=== PATIENT | male | born 1955 | race Caucasian/White ===

== ENCOUNTER 2021-12-17 14:37 | Inpatient (IN) | payer OTHER, MEDICARE ==
[~2021-12-17] VITALS: Ht 170.2 cm; Wt 83.5 kg
[2021-12-17] MEDS ORDERED: FLUT1DIS5 INH (15:04)
[2021-12-17] MEDS ORDERED: Norco 5-325 Ta1 EACH PO (15:05)
[2021-12-17] MEDS ORDERED: Primidone50 MG PO (15:05)
[2021-12-17] MEDS ORDERED: OMEP20ER PO (15:05)
[2021-12-17] MEDS ORDERED: LISI20 PO (15:05)
[2021-12-17] MEDS ORDERED: TADA10TA (15:05)
[2021-12-17 15:25] LABS: BASOPHILS ABSOLUTE AUTO 0.05 K/mm3 (0.00-0.23); BASOPHILS PERCENT AUTO 0 % (0-2); EOSINOPHILS ABSOLUTE AUTO 0.09 K/mm3 (0.00-0.68); EOSINOPHILS PERCENT AUTO 0 % (0-6); Hematocrit 37.5 % (37.0-53.0); Hemoglobin 12.6 g/dL (13.5-17.5); IMMATURE GRAN ABSOLUTE AUTO 0.79 K/mm3 (0.00-0.10); IMMATURE GRAN PERCENT AUTO 4 % (0-1); LYMPHOCYTES ABSOLUTE AUTO 0.98 K/mm3 (0.84-5.20); LYMPHOCYTES PERCENT AUTO 5 % (21-46); MONOCYTES ABSOLUTE AUTO 1.89 K/mm3 (0.16-1.47); MONOCYTES PERCENT AUTO 9 % (4-13); Mean Corpuscular HGB 32.3 pg (26.0-34.0); Mean Corpuscular HGB Conc 33.6 g/dL (31.5-36.5); Mean Corpuscular Volume 96 fL (80-100); Mean Platelet Volume 9.9 fL (9.1-12.4); NEUTROPHILS ABSOLUTE AUTO 18.19 K/mm3 (1.96-9.15); NEUTROPHILS PERCENT AUTO 83 % (41-73); Platelet Count 285 K/mm3 (150-400); RDW Coefficient Variation 12.9 % (11.7-14.2); RDW Standard Deviation 45.5 fL (35.1-46.3); White Blood Cell Count 21.99 K/mm3 (4.00-11.30)
[2021-12-17 15:38] LABS: Alanine Aminotransfer (ALT/SGP 22 U/L (12-78); Albumin, Blood 3.6 g/dL (3.4-5.0); Alk Phos 59 U/L (50-136); Anion Gap 6 mmol/L (6-16); Aspartate Aminotrans (AST/SGOT 6 U/L (12-37); Bilirubin, Total 1.3 mg/dL (0.1-1.0); Blood Urea Nitrogen 10 mg/dL (8-24); Bun/Creatinine Ratio 10.4 (12.0-20.0); CO2, Blood 24 mmol/L (21-32); Calcium, Blood 8.9 mg/dL (8.5-10.1); Chloride, Blood 106 mmol/L (98-108); Creatinine, Blood 0.96 mg/dL (0.60-1.20); Globulin, Blood 3.6 g/dL (2.2-4.0); Glomerular Filtration Rate >60 (60-); Glucose, Blood 125 mg/dL (70-99); Potassium, Blood 3.7 mmol/L (3.5-5.5); Sodium, Blood 136 mmol/L (136-145); Total Protein, Blood 7.2 g/dL (6.4-8.2)
[2021-12-17 15:54] LABS: Influenza A, PCR NEGATIVE (NEGATIVE); Influenza B, PCR NEGATIVE (NEGATIVE); Resp Syncytial Virus, PCR NEGATIVE (NEGATIVE); SARS-Cov-2 (COVID-19) PCR, MMC NEGATIVE (NEGATIVE)
--- NOTE | 2021-12-17 19:12 | NUR ---
ADMIT NOTE RECEIVED REPORT FROM RICK DELAROSA IN ED. PT TO ROOM, SBA TRANSFER TO BED. PT ORIENTED TO ROOM AND CALL LIGHT. EDUCATED ON FALL RISK AND TO CALL BEFORE GETTING OUT OF BED. PT REPROTS HAVING CP YESTERDAY WHILE WATCHING FOOTBALL, WHICH RADIATED TO BACK AND SHOULDER; STATES HE WORK UP THIS AM FEELING WORSE SO [facility]. PT A&Ox4; CALM AND COOPERATIVE WITH CARE. SBA IN ROOM. PT REPORTS BACK PAIN, ASKING FOR MEDCIATIONS, EDCUATED PT ON ORDERS AND HE HAD HAD PAIN MEDICATION AN HOUR BEFORE. PT DENIES CHEST PAIN/PRESSURE, SOB, NASUEA AND DIZZINESS. TELE SINUS TACH AT 108. VSS. NO S/SX OF DISTRESS NOTED. REPORTS GIVEN TO ONCOMING RN.
[2021-12-18 04:10] LABS: Hematocrit 35.3 % (37.0-53.0); Hemoglobin 11.9 g/dL (13.5-17.5); Mean Corpuscular HGB 32.5 pg (26.0-34.0); Mean Corpuscular HGB Conc 33.7 g/dL (31.5-36.5); Mean Corpuscular Volume 96 fL (80-100); Mean Platelet Volume 9.6 fL (9.1-12.4); Platelet Count 268 K/mm3 (150-400); RDW Standard Deviation 46.4 fL (35.1-46.3); Red Blood Cell Count 3.66 M/mm3 (4.30-5.90); White Blood Cell Count 21.47 K/mm3 (4.00-11.30)
[2021-12-18 04:27] LABS: Anion Gap 7 mmol/L (6-16); Blood Urea Nitrogen 10 mg/dL (8-24); Bun/Creatinine Ratio 12.1 (12.0-20.0); CO2, Blood 22 mmol/L (21-32); Calcium, Blood 8.6 mg/dL (8.5-10.1); Chloride, Blood 113 mmol/L (98-108); Creatinine, Blood 0.83 mg/dL (0.60-1.20); Glomerular Filtration Rate >60 (60-); Glucose, Blood 129 mg/dL (70-99); Potassium, Blood 3.7 mmol/L (3.5-5.5); Sodium, Blood 142 mmol/L (136-145)
--- NOTE | 2021-12-18 05:35 | NUR ---
SHIFT SUMMARY ASSUMED CARE OF PT AT 1900. PT IS A/OX4. HEART SOUNDS REGULAR, LUNG SOUNDS HAVE CRACKLES IN THE L LUNG. PT COUGHED UP RED TINGED SPUTUM T/O THE NIGHT. PT REMAINED ON RA. PT WAS INDENDENT TO BATHROOM. PT C/O PAIN ALL OVER HIS BODY. MEDICATED PER EMAR.
--- NOTE | 2021-12-18 07:38 | NUR ---
AM NOTE ASSUMED CARE OF PT AT APPROX 0700. PT APPEARS TO BE SLEEPING. WAKES EASILY TO VERBAL STIMULI. A&Ox4; CALM AND COOPERATIVE WITH CARE. PT IND IN ROOM. PT REPORTS ACUTE SHARP LEFT SIDED CHEST PAIN WITH COUGHING AND HEADACHE THIS AM AND CHRONIC LOWER BACK AND NECK PAIN, WILL MEDICATE PER EMAR. PT REPORTS PRODUCTIVE COUGH WITH BLOOD TINGED SPUTUM AND SOB; SPO2 >94% ON RA; RESP RATE 16-20; NON LABORED BREATHING NOTED. TELE SINUS 80-90'S, BP STABLE. ABD SOFT, NON-TENDER, PT REPORTS LAST BM 12/17/21. PT DENIES NAUSEA, DIZZINESS AND NUMB/TINGLING. VSS. NO OTHER ACUTE CHANGES NOTED. WILL COTNINUE TO MONITOR.
--- NOTE | 2021-12-18 17:23 | NUR ---
SHIFT SUMMARY NO S/SX OF DISTRESS NOTED. PT REPORTS HEADACHE, BACK AND NECK PAIN; MEDCIATED x2 WITH NORCO. PT RECEIVING IV FLUIDS AND ANTIBIOTICS. NO OTHER ACUTE CHANGES NOTED. WILL CONTINUE TO MONITOR UNTIL REPORT GIVEN TO ONCOMING RN.
--- NOTE | 2021-12-19 06:16 | NUR ---
SHIFT SUMMARY ASSUMED CARE OF PT AT 1900. PT IS A/OX4. HEART SOUNDS REGULAR, LUNG SOUNDS COURSE AT THE BASES. PT HAD PAIN IN HIS CHEST L SIDE WHEN HE COUGHED, MEDICATED PER EMAR. PT STILL HAS DARM BROWN SPUTUM. PT WAS INDENDENT IN ROOM. PT HAD NO OTHER COMPLAINTS.
[2021-12-19 06:19] LABS: Hemoglobin 11.9 g/dL (13.5-17.5); Mean Corpuscular HGB Conc 33.1 g/dL (31.5-36.5); Mean Corpuscular Volume 97 fL (80-100); Mean Platelet Volume 10.2 fL (9.1-12.4); Platelet Count 312 K/mm3 (150-400); RDW Coefficient Variation 12.8 % (11.7-14.2); RDW Standard Deviation 46.1 fL (35.1-46.3); Red Blood Cell Count 3.72 M/mm3 (4.30-5.90); White Blood Cell Count 15.99 K/mm3 (4.00-11.30)
[2021-12-19 07:04] LABS: Anion Gap 5 mmol/L (6-16); Blood Urea Nitrogen 13 mg/dL (8-24); Bun/Creatinine Ratio 15.4 (12.0-20.0); CO2, Blood 26 mmol/L (21-32); Calcium, Blood 9.1 mg/dL (8.5-10.1); Chloride, Blood 109 mmol/L (98-108); Creatinine, Blood 0.85 mg/dL (0.60-1.20); Glomerular Filtration Rate >60 (60-); Glucose, Blood 113 mg/dL (70-99); Potassium, Blood 3.7 mmol/L (3.5-5.5); Sodium, Blood 140 mmol/L (136-145)
--- NOTE | 2021-12-19 07:47 | NUR ---
AM NOTED ASSUMED CARE OF PT AT APPROX 0700. PT RESTING IN BED, ALERT AND ORIENTED. PT REPORTING CHRONIC LOWER BACK AND NECK PAIN AND ACUTE SHARP LEFT SIDED CHEST PAIN RADIATING TO BACK WITH COUGH. PT REPORTS SOB AT REST; LS COARSE IN THE BILATERAL UPPER LOBES AND DIM IN BILATERAL LOWER LOBES, PRODUCTED COUGH NOTED. PT SPO2 >90% ON RA RESP RATE 14-18. BP AND HR STABLE, NO TELE PER ORDERS. BT NORMOACTIVE x3 QUAD; PT REPORTS BM LAST NIGHT, SOFT, NON TENDER ABD. PT RECEIVING IV ANTIBIOTICS. PT DENIES NAUSEA, DIZZINESS AND NUMB/TINGLING. OTHER VSS. NO OTHER ACUTE CHANGES NOTED. WILL CONTINUE TO MONITOR.
[2021-12-19] MEDS ORDERED: VISBIOME 112.51 EACH PO (09:38)
[2021-12-19] MEDS ORDERED: Acetaminophen325 M1 PO (09:38)
[2021-12-19] MEDS ORDERED: AMOCLA875 PO (09:39)
[2021-12-19] MEDS ORDERED: ROBITUSSIN DM PO (09:41)
--- NOTE | 2021-12-19 10:31 | NUR ---
DISCHARGE SUMMARY NO S/SX OF DISTRESS NOTED T/O SHIFT. NO ACUTE CHAGNES. VSS. PT EDUCATED ON DISCHARGE INSTRUCTIONS, FOLLOW UP APPOINTMENTS AND MEDCIATIONS. [facility], PER PT REQUEST. DISCUSSED THE NEED TO COMPLETE ANTIBIOTICS COURSE AND FOLLOW UP WITH PCP 1-2 WEEKS AND RECHECK XRAY IN 4 WEEKS PER DISCHARGE ORDERS. PT LEFT ROOM VIA WHEELCHAIR AT 1023, PT STABLE UPON DISCHARGE.
== END 2021-12-19 10:26 | disposition home or self-care (01) | DRG 871 ==
LOC: ER 14:37 → PCU 16:59
PROVIDERS: Emergency Medicine; ADMIT Internal Medicine
DX: A41.1 Sepsis due to other specified staphylococcus (principal); J18.9 Pneumonia, unspecified organism; J96.01 Acute respiratory failure with hypoxia; R04.2 Hemoptysis; R65.20 Severe sepsis without septic shock; R73.01 Impaired fasting glucose; I10 Essential (primary) hypertension; Z20.822 Contact with and (suspected) exposure to COVID-19; R07.81 Pleurodynia; E78.5 Hyperlipidemia, unspecified; K21.9 Gastro-esophageal reflux disease without esophagitis; M54.50 Low back pain, unspecified; G89.29 Other chronic pain; I25.10 Atherosclerotic heart disease of native coronary artery without angina pectoris; J45.909 Unspecified asthma, uncomplicated; Z53.29 Procedure and treatment not carried out because of patient's decision for other reasons; Z87.891 Personal history of nicotine dependence; Z79.51 Long term (current) use of inhaled steroids; Z79.899 Other long term (current) drug therapy
CPT/HCPCS: 0241U; 36415; 71275; 80048; 80053; 83605; 83880; 84146; 84484; 85025; 85027; 87040; 87070; 87205; 93005; 93010; 94640; 94760; 96374; 99285-25; A9270; J0692; J1650; J3370; J7030; J7050; Q9967

== ENCOUNTER 2022-09-11 08:42 | Emergency (ER) | payer OTHER ==
[~2022-09-11] VITALS: Ht 170.2 cm; Wt 81.7 kg
[~2022-09-11 08:42] MED LIST: AMOCLA875 PO; Acetaminophen325 M1 PO; FLUT1DIS5 INH; LISI20 PO; Norco 5-325 Ta1 EACH PO; OMEP20ER PO; Primidone50 MG PO; ROBITUSSIN DM PO; TADA10TA; VISBIOME 112.51 EACH PO
[2022-09-11 09:04] LABS: BASOPHILS ABSOLUTE AUTO 0.06 K/mm3 (0.00-0.23); BASOPHILS PERCENT AUTO 1 % (0-2); EOSINOPHILS ABSOLUTE AUTO 0.06 K/mm3 (0.00-0.68); EOSINOPHILS PERCENT AUTO 1 % (0-6); Hematocrit 38.7 % (37.0-53.0); Hemoglobin 13.7 g/dL (13.5-17.5); IMMATURE GRAN ABSOLUTE AUTO 0.02 K/mm3 (0.00-0.10); IMMATURE GRAN PERCENT AUTO 0 % (0-1); LYMPHOCYTES ABSOLUTE AUTO 1.82 K/mm3 (0.84-5.20); LYMPHOCYTES PERCENT AUTO 27 % (21-46); MONOCYTES ABSOLUTE AUTO 0.66 K/mm3 (0.16-1.47); MONOCYTES PERCENT AUTO 10 % (4-13); Mean Corpuscular HGB 33.6 pg (26.0-34.0); Mean Corpuscular HGB Conc 35.4 g/dL (31.5-36.5); Mean Corpuscular Volume 95 fL (80-100); Mean Platelet Volume 9.2 fL (9.1-12.4); NEUTROPHILS ABSOLUTE AUTO 4.02 K/mm3 (1.96-9.15); NEUTROPHILS PERCENT AUTO 61 % (41-73); Platelet Count 343 K/mm3 (150-400); RDW Standard Deviation 41.5 fL (35.1-46.3); Red Blood Cell Count 4.08 M/mm3 (4.30-5.90); White Blood Cell Count 6.64 K/mm3 (4.00-11.30)
[2022-09-11 09:22] LABS: Albumin, Blood 4.2 g/dL (3.4-5.0); Albumin/Globulin Ratio 1.1 (0.8-1.8); Bilirubin, Total 0.5 mg/dL (0.1-1.0); Bun/Creatinine Ratio 21.6 (12.0-20.0); Calcium, Blood 9.3 mg/dL (8.5-10.1); Creatinine, Blood 0.92 mg/dL (0.60-1.20); Globulin, Blood 3.7 g/dL (2.2-4.0); Potassium, Blood 3.8 mmol/L (3.5-5.5); Total Protein, Blood 7.9 g/dL (6.4-8.2)
== END 2022-09-11 13:56 | disposition home or self-care (01) ==
LOC: ER 08:42
PROVIDERS: Physician Assistant
DX: R07.89 Other chest pain (principal); I10 Essential (primary) hypertension; R73.03 Prediabetes; K21.9 Gastro-esophageal reflux disease without esophagitis; J45.909 Unspecified asthma, uncomplicated; I25.10 Atherosclerotic heart disease of native coronary artery without angina pectoris; Z79.899 Other long term (current) drug therapy; Z87.891 Personal history of nicotine dependence
CPT/HCPCS: 36415; 71045; 80053; 83880; 84484; 85025; 93005; 93010; A9270